=== PATIENT | male | born 1950 | race Caucasian/White ===

== ENCOUNTER 2018-03-25 22:22 | Inpatient (IN) | payer BC ==
[2018-03-25] MEDS ORDERED: ONDANSETRON 4 MG INJ IV (23:30)
[2018-03-25] MEDS ORDERED: NACL 0.9% 3 ML SYG IV (23:30)
[2018-03-25] MEDS: DEXTROSE 5%-0.45% NACL 1,000 ML IV (23:48)
[2018-03-25] MEDS: DILTIAZEM 25 MG INJ IV (23:48)
[2018-03-25] MEDS: FAMOTIDINE 20 MG INJ IV (23:57)
[2018-03-26 00:56] LABS: ADD MAN DIFF? NO
[2018-03-26 00:59] LABS: BASOPHILS % 0.2 % (0.0-2.0); EOSINOPHILS % 0.1 % (0.0-7.0); HEMATOCRIT 25.8 % (42.0-52.0); HEMOGLOBIN 7.9 g/dl (14.0-18.0); LYMPHOCYTES # 0.8 10^3/ul (0.8-2.9); LYMPHOCYTES % 5.1 % (15.0-51.0); MEAN CORPUSCULAR HEMOGLOBIN 26.7 pg (29.0-33.0); MEAN CORPUSCULAR HGB CONC 30.6 g/dl (32.0-37.0); MEAN CORPUSCULAR VOLUME 87.2 fl (82.0-101.0); MEAN PLATELET VOLUME 9.3 fl (7.4-10.4); MONOCYTES % 6.6 % (0.0-11.0); NEUTROPHIL # 13.4 10^3/ul (1.6-7.5); NEUTROPHILS % 86.7 % (39.0-77.0); PLATELET COUNT 266 10^3/UL (140-415); RED BLOOD COUNT 2.96 10^6/ul (4.70-6.10); RED CELL DISTRIBUTION WIDTH 19.5 % (11.5-14.5)
[2018-03-26 00:59] LABS: WHITE BLOOD COUNT 15.5 10^3/ul (4.8-10.8)
[2018-03-26 01:18] LABS: IRON 24 ug/dl (35-150)
[2018-03-26 01:27] LABS: % IRON SATURATION 11 % SAT (22-52); TOTAL IRON BINDING CAPACITY 214 ug/dl (241-421)
[2018-03-26 01:43] LABS: ALANINE AMINOTRANSFERASE 34 IU/L (13-69); ALBUMIN 3.2 g/dl (3.3-4.9); ALBUMIN/GLOBULIN RATIO 0.86; ALKALINE PHOSPHATASE 168 IU/L (42-121); ANION GAP 14 (5-13); ASPARTATE AMINO TRANSFERASE 64 IU/L (15-46); BLOOD UREA NITROGEN 48 mg/dl (7-20); CARBON DIOXIDE 24 mmol/L (21-31); CHLORIDE 106 mmol/L (97-110); CREATINE KINASE 80 IU/L (23-200); CREATININE 4.32 mg/dl (0.61-1.24); Estimated GFR 14 mL/min (>60); GLUCOSE 108 mg/dl (70-220); MAGNESIUM 2.6 mg/dl (1.7-2.5); POTASSIUM 4.5 mmol/L (3.5-5.1); SODIUM 144 mmol/L (135-144); TOTAL PROTEIN 6.9 g/dl (6.1-8.1)
[2018-03-26 01:55] LABS: CK INDEX 9.4; TROPONIN-I 0.024 ng/ml (0.000-0.120)
[2018-03-26 02:01] LABS: CK-MB 7.54 ng/ml (0.0-2.4)
[2018-03-26 02:30] LABS: HEMOGLOBIN A1C 5.4 % (0-5.9)
[2018-03-26 07:56] LABS: CREATINE KINASE 92 IU/L (23-200)
[2018-03-26 08:05] LABS: CK INDEX 8.3; TROPONIN-I 0.023 ng/ml (0.000-0.120)
[2018-03-26 08:07] LABS: CK-MB 7.63 ng/ml (0.0-2.4)
[2018-03-26] MEDS: FAMOTIDINE 20 MG INJ IV (08:34)
[2018-03-26] MEDS ORDERED: ALBUTEROL/IPRATROPIUM (NEB) 3 ML AMP HHN (09:30)
[2018-03-26 09:49] LABS: OCCULT BLOOD STOOL POSITIVE (NEGATIVE)
[2018-03-26] MEDS: LORAZEPAM 2 MG INJ IV (09:49)
[2018-03-26] MEDS: PANTOPRAZOLE 40 MG INJ IV ×2 (09:49→17:42)
[2018-03-26] MEDS: METOPROLOL 25 MG TAB PO ×2 (09:50→21:00)
[2018-03-26] MEDS: ASPIRIN (EC) 81 MG TAB PO (09:50)
[2018-03-26] MEDS: NIFEdipine (XL) 60 MG TAB PO (09:50)
[2018-03-26] MEDS: LOSARTAN 50 MG TAB NGT (10:35)
[2018-03-26] MEDS: METHYLPREDNISOLONE 125 MG INJ IV (10:35)
[2018-03-26 10:38] LABS: AADO2 Arterial 239.4 mmHg (7.0-24.0); Allen Test ACCEPTAB; Arterial Base Excess -3.1 mmol/L (-3.0-3); Arterial Blood Gas Oxygen Sat 89.8 mmHG (95.0-98.0); Arterial COHb 0.9 % (0.0-3.0); Arterial Fraction of Oxyhgb 88.9 % (93.0-99.0); Arterial HCO3 21.9 mmol/L (22.0-26.0); Arterial MetHb 0.1 % (0.0-1.5); Arterial pCO2 39.1 mmhg (35-45); MODE MASK - SIMPLE; Site Right Radial
[2018-03-26] MEDS: CEFEPIME 1GM/50 ML (PMX) 50 ML IVPB (11:07)
[2018-03-26] MEDS: DILTIAZEM-D5W 125MG/125ML DRIP 125 ML IV (12:28)
[2018-03-26 12:52] LABS: AADO2 Arterial 606.9 mmHg (7.0-24.0); Allen Test ACCEPTAB; Arterial Base Excess -3.3 mmol/L (-3.0-3); Arterial Fraction of Oxyhgb 89.1 % (93.0-99.0); Arterial MetHb 0 % (0.0-1.5); Arterial pCO2 40.7 mmhg (35-45); MODE MASK - NRB; Site Right Radial
[2018-03-26] MEDS: ISOSORBIDE DINITRATE 20 MG TAB NGT ×2 (13:00→21:00)
[2018-03-26] MEDS: ALBUTEROL/IPRATROPIUM (NEB) 3 ML AMP HHN ×3 (13:14→21:34)
[2018-03-26] MEDS: DIGOXIN 500 MCG INJ IV (15:42)
[2018-03-26 17:27] LABS: HAAIG REFLEX REFLEX FILED
[2018-03-26] MEDS: LACTULOSE 30ML CUP NGT (17:42)
[2018-03-26] MEDS: SUCRALFATE (100 MG/ML) 10ML CUP NGT ×2 (17:45→20:56)
[2018-03-26 18:36] LABS: HEPATITIS B SURFACE ANTIGEN NEGATIVE (NEGATIVE)
[2018-03-26 18:53] LABS: HEPATITIS B CORE ANTIBODY NEGATIVE (NEGATIVE); HEPATITIS C VIRAL ANTIBODY NEGATIVE (NEGATIVE)
[2018-03-27] MEDS: HEPARIN 1000 UNITS/ML 10 ML INJ CATHETER ×2 (02:50→13:04)
[2018-03-27] MEDS: PANTOPRAZOLE 40 MG INJ IV ×2 (05:31→17:58)
[2018-03-27] MEDS: LACTULOSE 30ML CUP NGT ×4 (05:31→17:58)
[2018-03-27 06:33] LABS: ADD MAN DIFF? NO
[2018-03-27 06:35] LABS: WHITE BLOOD COUNT 19.2 10^3/ul (4.8-10.8)
[2018-03-27 06:35] LABS: BASOPHILS % 0.1 % (0.0-2.0); HEMATOCRIT 27.1 % (42.0-52.0); HEMOGLOBIN 8.1 g/dl (14.0-18.0); LYMPHOCYTES # 0.8 10^3/ul (0.8-2.9); MEAN CORPUSCULAR HEMOGLOBIN 26.2 pg (29.0-33.0); MEAN CORPUSCULAR HGB CONC 29.9 g/dl (32.0-37.0); MEAN CORPUSCULAR VOLUME 87.7 fl (82.0-101.0); MEAN PLATELET VOLUME 9.7 fl (7.4-10.4); MONOCYTE # 1.1 10^3/ul (0.3-0.9); MONOCYTES % 5.8 % (0.0-11.0); NEUTROPHIL # 17.2 10^3/ul (1.6-7.5); NEUTROPHILS % 89.4 % (39.0-77.0); PLATELET COUNT 352 10^3/UL (140-415); RED BLOOD COUNT 3.09 10^6/ul (4.70-6.10); RED CELL DISTRIBUTION WIDTH 19.5 % (11.5-14.5)
[2018-03-27] MEDS: DILTIAZEM-D5W 125MG/125ML DRIP 125 ML IV (06:39)
[2018-03-27 06:50] LABS: AMMONIA 11 umol/l (9-30)
[2018-03-27 07:23] LABS: CHOLESTEROL 114 mg/dl (100-200)
[2018-03-27 07:23] LABS: CHOL/HDL RATIO 4.5 RATIO; HDL CHOLESTEROL 25 mg/dl (31-75); LDL CHOLESTEROL,CALCULATED 72 mg/dl; TRIGLYCERIDES 87 mg/dl (0-149)
[2018-03-27 07:55] LABS: ANION GAP 12 (5-13); BLOOD UREA NITROGEN 29 mg/dl (7-20); CALCIUM 8.3 mg/dl (8.4-10.2); CARBON DIOXIDE 25 mmol/L (21-31); CHLORIDE 102 mmol/L (97-110); CREATININE 2.83 mg/dl (0.61-1.24); Estimated GFR 22 mL/min (>60); GLUCOSE 124 mg/dl (70-220); MAGNESIUM 2.2 mg/dl (1.7-2.5); POTASSIUM 4.6 mmol/L (3.5-5.1); SODIUM 139 mmol/L (135-144)
[2018-03-27] MEDS: CEFEPIME 1GM/50 ML (PMX) 50 ML IVPB (08:48)
[2018-03-27] MEDS: METOPROLOL 25 MG TAB PO ×2 (08:53→21:00)
[2018-03-27] MEDS: SUCRALFATE (100 MG/ML) 10ML CUP NGT ×4 (08:53→21:00)
[2018-03-27] MEDS: LOSARTAN 50 MG TAB NGT (08:54)
[2018-03-27] MEDS: ALBUTEROL/IPRATROPIUM (NEB) 3 ML AMP HHN ×5 (09:00→21:23)
[2018-03-27] MEDS ORDERED: VANCOMYCIN IV PER PHARMACY XX (09:00)
[2018-03-27] MEDS: ISOSORBIDE DINITRATE 20 MG TAB NGT ×3 (09:03→21:00)
[2018-03-27 09:22] LABS: Allen Test ACCEPTAB; Arterial Base Excess 0.9 mmol/L (-3.0-3); Arterial COHb 0.5 % (0.0-3.0); Arterial Fraction of Oxyhgb 91.5 % (93.0-99.0); Arterial HCO3 24.3 mmol/L (22.0-26.0); Arterial MetHb 0 % (0.0-1.5); Arterial pCO2 34.2 mmhg (35-45); MODE MASK - SIMPLE; Site Left Radial
[2018-03-27] MEDS: LEVOFLOXACIN 250MG/D5W (PMX) 50 ML IVPB (13:07)
[2018-03-27] MEDS: VANCOMYCIN 1.5 GM in SOD CHLORIDE 0.9% 250 ML IVPB (14:27)
[2018-03-27] MEDS: HALOPERIDOL 5 MG INJ IM (21:30)
[2018-03-28] MEDS: LACTULOSE 30ML CUP NGT ×4 (01:37→18:00)
[2018-03-28] MEDS: PANTOPRAZOLE 40 MG INJ IV ×2 (04:51→18:43)
[2018-03-28 05:36] LABS: AADO2 Arterial 108.2 mmHg (7.0-24.0); Allen Test ACCEPTAB; Arterial Base Excess 6.7 mmol/L (-3.0-3); Arterial Blood Gas Oxygen Sat 90.4 mmHG (95.0-98.0); Arterial Fraction of Oxyhgb 89.4 % (93.0-99.0); Arterial HCO3 30.3 mmol/L (22.0-26.0); Arterial MetHb 0.1 % (0.0-1.5); Arterial pCO2 39.3 mmhg (35-45); MODE NASAL CANNULA; Site Right Radial
[2018-03-28 06:00] LABS: ADD MAN DIFF? NO
[2018-03-28 06:06] LABS: WHITE BLOOD COUNT 12.6 10^3/ul (4.8-10.8)
[2018-03-28 06:06] LABS: BASOPHILS % 0.1 % (0.0-2.0); EOSINOPHILS % 0.1 % (0.0-7.0); HEMATOCRIT 23.4 % (42.0-52.0); LYMPHOCYTES # 0.8 10^3/ul (0.8-2.9); LYMPHOCYTES % 6.5 % (15.0-51.0); MEAN CORPUSCULAR HEMOGLOBIN 26.1 pg (29.0-33.0); MEAN CORPUSCULAR HGB CONC 29.9 g/dl (32.0-37.0); MEAN CORPUSCULAR VOLUME 87.3 fl (82.0-101.0); MEAN PLATELET VOLUME 9.5 fl (7.4-10.4); MONOCYTE # 1.2 10^3/ul (0.3-0.9); MONOCYTES % 9.1 % (0.0-11.0); NEUTROPHIL # 10.4 10^3/ul (1.6-7.5); NEUTROPHILS % 82.3 % (39.0-77.0); PLATELET COUNT 325 10^3/UL (140-415); RED BLOOD COUNT 2.68 10^6/ul (4.70-6.10); RED CELL DISTRIBUTION WIDTH 19.4 % (11.5-14.5)
[2018-03-28 07:13] LABS: ANION GAP 11 (5-13); BLOOD UREA NITROGEN 23 mg/dl (7-20); CALCIUM 8.2 mg/dl (8.4-10.2); CARBON DIOXIDE 28 mmol/L (21-31); CHLORIDE 99 mmol/L (97-110); CREATININE 2.59 mg/dl (0.61-1.24); Estimated GFR 25 mL/min (>60); GLUCOSE 186 mg/dl (70-220); MAGNESIUM 2.2 mg/dl (1.7-2.5); PHOSPHORUS 2.2 mg/dl (2.5-4.9); POTASSIUM 3.9 mmol/L (3.5-5.1); SODIUM 138 mmol/L (135-144)
[2018-03-28] MEDS: ALBUTEROL/IPRATROPIUM (NEB) 3 ML AMP HHN ×4 (08:12→20:47)
[2018-03-28] MEDS: SUCRALFATE (100 MG/ML) 10ML CUP NGT ×4 (09:13→20:35)
[2018-03-28] MEDS: ISOSORBIDE DINITRATE 20 MG TAB NGT ×3 (09:13→20:35)
[2018-03-28] MEDS: LOSARTAN 50 MG TAB NGT (09:14)
[2018-03-28] MEDS: METOPROLOL 25 MG TAB PO ×2 (09:14→18:00)
[2018-03-28] MEDS: CEFEPIME 1GM/50 ML (PMX) 50 ML IVPB (09:14)
[2018-03-28] MEDS: DILTIAZEM-D5W 125MG/125ML DRIP 125 ML IV (09:34)
[2018-03-28] MEDS: LORAZEPAM 4 MG/ML VIAL IV ×2 (12:29→18:43)
[2018-03-28] MEDS: EPOETIN 10000 UNITS/1 ML INJ (ESRD) SC (12:30)
[2018-03-28] MEDS: SOD FERRIC GLUC COMPLX 125 MG in SOD CHLORIDE 0.9% 100 ML IVPB (13:55)
[2018-03-29] MEDS: METOPROLOL 25 MG TAB PO ×3 (00:09→11:03)
[2018-03-29] MEDS: LACTULOSE 30ML CUP NGT ×3 (00:10→11:03)
[2018-03-29] MEDS ORDERED: VITAMIN A & D 5 GM OINT PACKET TOP (00:32)
[2018-03-29] MEDS: PANTOPRAZOLE 40 MG INJ IV ×2 (05:17→17:47)
[2018-03-29] MEDS: hydrALAzine 20 MG INJ IV ×3 (05:45→23:16)
[2018-03-29 06:10] LABS: ADD MAN DIFF? NO
[2018-03-29 06:22] LABS: BASOPHILS % 0.3 % (0.0-2.0); EOSINOPHILS # 0.1 10^3/ul (0.0-0.5); EOSINOPHILS % 1.2 % (0.0-7.0); HEMOGLOBIN 7.5 g/dl (14.0-18.0); LYMPHOCYTES % 8.8 % (15.0-51.0); MEAN CORPUSCULAR HEMOGLOBIN 26.9 pg (29.0-33.0); MEAN CORPUSCULAR VOLUME 89.6 fl (82.0-101.0); MEAN PLATELET VOLUME 9.8 fl (7.4-10.4); MONOCYTES % 9.1 % (0.0-11.0); NEUTROPHIL # 8.5 10^3/ul (1.6-7.5); PLATELET COUNT 386 10^3/UL (140-415); RED BLOOD COUNT 2.79 10^6/ul (4.70-6.10); RED CELL DISTRIBUTION WIDTH 19.4 % (11.5-14.5)
[2018-03-29 06:22] LABS: WHITE BLOOD COUNT 10.8 10^3/ul (4.8-10.8)
[2018-03-29 06:38] LABS: VANCOMYCIN,RANDOM 20.1 ug/ml
[2018-03-29 06:43] LABS: ANION GAP 10 (5-13); BLOOD UREA NITROGEN 35 mg/dl (7-20); CALCIUM 8.5 mg/dl (8.4-10.2); CARBON DIOXIDE 29 mmol/L (21-31); CHLORIDE 102 mmol/L (97-110); Estimated GFR 14 mL/min (>60); GLUCOSE 91 mg/dl (70-220); POTASSIUM 4.3 mmol/L (3.5-5.1); SODIUM 141 mmol/L (135-144)
[2018-03-29] MEDS: LOSARTAN 50 MG TAB NGT (08:59)
[2018-03-29] MEDS: ISOSORBIDE DINITRATE 20 MG TAB NGT ×3 (08:59→21:00)
[2018-03-29] MEDS: LEVOFLOXACIN 250MG/D5W (PMX) 50 ML IVPB (09:10)
[2018-03-29] MEDS: CEFEPIME 1GM/50 ML (PMX) 50 ML IVPB (09:11)
[2018-03-29] MEDS: SUCRALFATE (100 MG/ML) 10ML CUP NGT ×4 (09:11→21:00)
[2018-03-29] MEDS: ALBUTEROL/IPRATROPIUM (NEB) 3 ML AMP HHN ×4 (09:55→20:42)
[2018-03-29] MEDS: SOD FERRIC GLUC COMPLX 125 MG in SOD CHLORIDE 0.9% 100 ML IVPB (12:32)
[2018-03-29] MEDS: HEPARIN 1000 UNITS/ML 10 ML INJ CATHETER (15:13)
[2018-03-29] MEDS: LORAZEPAM 4 MG/ML VIAL IV (15:20)
[2018-03-29] MEDS: EPOETIN 10000 UNITS/1 ML INJ (ESRD) SC (15:21)
[2018-03-29] MEDS ORDERED: METOPROLOL 5 MG INJ (15:38)
[2018-03-29] MEDS: METOPROLOL 5 MG INJ IV ×2 (15:41→21:29)
[2018-03-29] MEDS: LACTULOSE ENEMA 1,000 ML BTL PR (23:16)
[2018-03-30] MEDS: LORAZEPAM 4 MG/ML VIAL IV ×3 (01:32→23:34)
[2018-03-30] MEDS: METOPROLOL 5 MG INJ IV ×5 (02:14→23:34)
[2018-03-30] MEDS: hydrALAzine 20 MG INJ IV ×2 (04:54→22:37)
[2018-03-30] MEDS: LACTULOSE ENEMA 1,000 ML BTL PR ×3 (06:00→22:37)
[2018-03-30] MEDS: PANTOPRAZOLE 40 MG INJ IV ×2 (06:28→18:02)
[2018-03-30] MEDS: LOSARTAN 50 MG TAB NGT (09:00)
[2018-03-30] MEDS: SUCRALFATE (100 MG/ML) 10ML CUP NGT ×4 (09:00→21:00)
[2018-03-30] MEDS: ISOSORBIDE DINITRATE 20 MG TAB NGT ×3 (09:00→21:00)
[2018-03-30 09:04] LABS: ADD MAN DIFF? NO
[2018-03-30] MEDS: ALBUTEROL/IPRATROPIUM (NEB) 3 ML AMP HHN ×4 (09:06→20:09)
[2018-03-30 09:10] LABS: BASOPHIL # 0.1 10^3/ul (0.0-0.1); BASOPHILS % 0.5 % (0.0-2.0); EOSINOPHILS # 0.1 10^3/ul (0.0-0.5); EOSINOPHILS % 1.1 % (0.0-7.0); HEMOGLOBIN 8.5 g/dl (14.0-18.0); LYMPHOCYTES % 9.1 % (15.0-51.0); MEAN CORPUSCULAR HEMOGLOBIN 26.2 pg (29.0-33.0); MEAN CORPUSCULAR HGB CONC 29.3 g/dl (32.0-37.0); MEAN CORPUSCULAR VOLUME 89.2 fl (82.0-101.0); MONOCYTE # 0.9 10^3/ul (0.3-0.9); MONOCYTES % 8.2 % (0.0-11.0); NEUTROPHIL # 8.6 10^3/ul (1.6-7.5); NEUTROPHILS % 76.2 % (39.0-77.0); PLATELET COUNT 348 10^3/UL (140-415); RED BLOOD COUNT 3.25 10^6/ul (4.70-6.10); RED CELL DISTRIBUTION WIDTH 19.4 % (11.5-14.5)
[2018-03-30 09:10] LABS: WHITE BLOOD COUNT 11.3 10^3/ul (4.8-10.8)
[2018-03-30 09:33] LABS: ALANINE AMINOTRANSFERASE 31 IU/L (13-69); ALBUMIN/GLOBULIN RATIO 0.75; ALKALINE PHOSPHATASE 141 IU/L (42-121); ANION GAP 11 (5-13); ASPARTATE AMINO TRANSFERASE 41 IU/L (15-46); BILIRUBIN,INDIRECT 0.2 mg/dl (0-1.1); BILIRUBIN,TOTAL 0.2 mg/dl (0.2-1.3); BLOOD UREA NITROGEN 21 mg/dl (7-20); CALCIUM 8.5 mg/dl (8.4-10.2); CARBON DIOXIDE 27 mmol/L (21-31); CHLORIDE 103 mmol/L (97-110); CREATININE 3.38 mg/dl (0.61-1.24); Estimated GFR 18 mL/min (>60); GLUCOSE 74 mg/dl (70-220); POTASSIUM 3.9 mmol/L (3.5-5.1); SODIUM 141 mmol/L (135-144)
[2018-03-30] MEDS: CEFEPIME 1GM/50 ML (PMX) 50 ML IVPB (09:49)
[2018-03-30] MEDS: SOD FERRIC GLUC COMPLX 125 MG in SOD CHLORIDE 0.9% 100 ML IVPB (13:53)
[2018-03-31] MEDS: hydrALAzine 20 MG INJ IV (04:16)
[2018-03-31] MEDS: METOPROLOL 5 MG INJ IV ×2 (05:19→12:00)
[2018-03-31] MEDS: PANTOPRAZOLE 40 MG INJ IV ×2 (05:19→18:01)
[2018-03-31] MEDS: LACTULOSE ENEMA 1,000 ML BTL PR (05:20)
[2018-03-31 05:56] LABS: ADD MAN DIFF? NO
[2018-03-31 05:58] LABS: WHITE BLOOD COUNT 13.5 10^3/ul (4.8-10.8)
[2018-03-31 05:58] LABS: BASOPHIL # 0.1 10^3/ul (0.0-0.1); BASOPHILS % 0.8 % (0.0-2.0); EOSINOPHILS # 0.1 10^3/ul (0.0-0.5); EOSINOPHILS % 0.9 % (0.0-7.0); HEMOGLOBIN 8.6 g/dl (14.0-18.0); LYMPHOCYTES # 1.2 10^3/ul (0.8-2.9); MEAN CORPUSCULAR HEMOGLOBIN 26.6 pg (29.0-33.0); MEAN CORPUSCULAR HGB CONC 29.7 g/dl (32.0-37.0); MEAN CORPUSCULAR VOLUME 89.8 fl (82.0-101.0); MEAN PLATELET VOLUME 10.2 fl (7.4-10.4); MONOCYTES % 7.6 % (0.0-11.0); NEUTROPHIL # 10.4 10^3/ul (1.6-7.5); NEUTROPHILS % 77.2 % (39.0-77.0); NUCLEATED RED BLOOD CELLS% 0.3 /100WBC (0.0-0.0); PLATELET COUNT 421 10^3/UL (140-415); RED BLOOD COUNT 3.23 10^6/ul (4.70-6.10); RED CELL DISTRIBUTION WIDTH 19.3 % (11.5-14.5)
[2018-03-31 06:40] LABS: VANCOMYCIN,RANDOM 14.9 ug/ml
[2018-03-31 06:47] LABS: ANION GAP 16 (5-13); BLOOD UREA NITROGEN 32 mg/dl (7-20); CALCIUM 8.7 mg/dl (8.4-10.2); CARBON DIOXIDE 24 mmol/L (21-31); CHLORIDE 103 mmol/L (97-110); CREATININE 4.85 mg/dl (0.61-1.24); Estimated GFR 12 mL/min (>60); GLUCOSE 71 mg/dl (70-220); MAGNESIUM 2.3 mg/dl (1.7-2.5); PHOSPHORUS 4.2 mg/dl (2.5-4.9); POTASSIUM 4.4 mmol/L (3.5-5.1); SODIUM 143 mmol/L (135-144)
[2018-03-31] MEDS: ALBUTEROL/IPRATROPIUM (NEB) 3 ML AMP HHN ×4 (08:10→21:10)
[2018-03-31] MEDS: LOSARTAN 50 MG TAB NGT (08:19)
[2018-03-31] MEDS: SUCRALFATE (100 MG/ML) 10ML CUP NGT ×4 (08:19→20:42)
[2018-03-31] MEDS: ISOSORBIDE DINITRATE 20 MG TAB NGT ×3 (08:19→20:42)
[2018-03-31] MEDS: HEPARIN 1000 UNITS/ML 10 ML INJ CATHETER (12:26)
[2018-03-31] MEDS: CEFEPIME 1GM/50 ML (PMX) 50 ML IVPB (12:47)
[2018-03-31] MEDS: LEVOFLOXACIN 250MG/D5W (PMX) 50 ML IVPB (12:51)
[2018-03-31] MEDS ORDERED: VANCOMYCIN 1 GM 250 ML IVPB (14:00)
[2018-03-31] MEDS: SOD FERRIC GLUC COMPLX 125 MG in SOD CHLORIDE 0.9% 100 ML IVPB (15:43)
[2018-03-31] MEDS: MANNITOL 25% 50 ML INJ IV* (16:30)
[2018-03-31] MEDS ORDERED: METOPROLOL 5 MG INJ IV (17:30)
[2018-03-31] MEDS: MANNITOL 20% 125 ML IV (17:50)
[2018-03-31] MEDS: LACTULOSE 30ML CUP PO (20:42)
[2018-03-31] MEDS: LORAZEPAM 4 MG/ML VIAL IV (20:43)
[2018-03-31] MEDS: METOPROLOL 25 MG TAB PO (20:43)
[2018-03-31] MEDS: EPOETIN 10000 UNITS/1 ML INJ (ESRD) SC (20:45)
[2018-04-01] MEDS ORDERED: ALTEPLASE (CATHFLO) 2 MG INJ CATHETER (03:00)
[2018-04-01] MEDS: hydrALAzine 20 MG INJ IV ×2 (03:02→05:06)
[2018-04-01] MEDS: ALTEPLASE (CATHFLO) 2 MG INJ CATHETER (03:39)
[2018-04-01] MEDS: LORAZEPAM 4 MG/ML VIAL IV (04:26)
[2018-04-01] MEDS: PANTOPRAZOLE 40 MG INJ IV ×2 (05:05→17:28)
[2018-04-01] MEDS: ALBUTEROL/IPRATROPIUM (NEB) 3 ML AMP HHN ×4 (08:24→20:21)
[2018-04-01] MEDS: SUCRALFATE (100 MG/ML) 10ML CUP NGT ×4 (08:25→21:21)
[2018-04-01] MEDS: ISOSORBIDE DINITRATE 20 MG TAB NGT ×3 (08:25→21:21)
[2018-04-01] MEDS: LOSARTAN 50 MG TAB NGT (08:25)
[2018-04-01] MEDS: LACTULOSE 30ML CUP PO ×3 (08:25→21:21)
[2018-04-01] MEDS: METOPROLOL 25 MG TAB PO ×2 (08:26→21:22)
[2018-04-01] MEDS: NIFEdipine (XL) 30 MG TAB PO ×2 (08:37→21:22)
[2018-04-01] MEDS: SOD FERRIC GLUC COMPLX 125 MG in SOD CHLORIDE 0.9% 100 ML IVPB (13:36)
[2018-04-02] MEDS: LORAZEPAM 4 MG/ML VIAL IV (01:15)
[2018-04-02] MEDS: PANTOPRAZOLE 40 MG INJ IV ×2 (06:41→17:15)
[2018-04-02] MEDS: hydrALAzine 20 MG INJ IV (06:41)
[2018-04-02] MEDS: ALBUTEROL/IPRATROPIUM (NEB) 3 ML AMP HHN ×4 (08:00→23:05)
[2018-04-02] MEDS: LACTULOSE 30ML CUP PO ×3 (08:11→20:34)
[2018-04-02] MEDS: METOPROLOL 25 MG TAB PO ×2 (08:11→20:36)
[2018-04-02] MEDS: SUCRALFATE (100 MG/ML) 10ML CUP NGT ×4 (08:11→20:35)
[2018-04-02] MEDS: LEVOFLOXACIN 250MG/D5W (PMX) 50 ML IVPB (08:14)
[2018-04-02] MEDS: LOSARTAN 50 MG TAB NGT (08:14)
[2018-04-02] MEDS: ISOSORBIDE DINITRATE 20 MG TAB NGT ×3 (08:15→21:00)
[2018-04-02] MEDS: NIFEdipine (XL) 30 MG TAB PO ×2 (08:15→20:35)
[2018-04-02] MEDS: RIFAXIMIN 550 MG TAB PO ×2 (12:07→20:34)
[2018-04-02] MEDS: HEPARIN 1000 UNITS/ML 10 ML INJ CATHETER (16:45)
[2018-04-03] MEDS: PANTOPRAZOLE 40 MG INJ IV ×2 (06:03→17:25)
[2018-04-03 06:05] LABS: ADD MAN DIFF? NO
[2018-04-03 06:12] LABS: BASOPHIL # 0.1 10^3/ul (0.0-0.1); BASOPHILS % 0.6 % (0.0-2.0); EOSINOPHILS # 0.2 10^3/ul (0.0-0.5); EOSINOPHILS % 1.4 % (0.0-7.0); HEMOGLOBIN 9.2 g/dl (14.0-18.0); LYMPHOCYTES # 1.4 10^3/ul (0.8-2.9); LYMPHOCYTES % 11.1 % (15.0-51.0); MEAN CORPUSCULAR HEMOGLOBIN 26.7 pg (29.0-33.0); MEAN CORPUSCULAR HGB CONC 29.7 g/dl (32.0-37.0); MEAN CORPUSCULAR VOLUME 89.9 fl (82.0-101.0); MEAN PLATELET VOLUME 9.2 fl (7.4-10.4); NEUTROPHIL # 9.4 10^3/ul (1.6-7.5); NEUTROPHILS % 77.3 % (39.0-77.0); NUCLEATED RED BLOOD CELLS% 0.2 /100WBC (0.0-0.0); PLATELET COUNT 406 10^3/UL (140-415); RED BLOOD COUNT 3.45 10^6/ul (4.70-6.10); RED CELL DISTRIBUTION WIDTH 20.9 % (11.5-14.5)
[2018-04-03 06:12] LABS: WHITE BLOOD COUNT 12.1 10^3/ul (4.8-10.8)
[2018-04-03] MEDS: ALBUTEROL/IPRATROPIUM (NEB) 3 ML AMP HHN ×4 (08:00→20:15)
[2018-04-03] MEDS: LACTULOSE 30ML CUP PO ×3 (08:28→20:12)
[2018-04-03] MEDS: SUCRALFATE (100 MG/ML) 10ML CUP NGT ×4 (08:29→20:11)
[2018-04-03] MEDS: RIFAXIMIN 550 MG TAB PO ×2 (08:29→20:12)
[2018-04-03] MEDS: NIFEdipine (XL) 30 MG TAB PO ×2 (08:30→20:19)
[2018-04-03] MEDS: LOSARTAN 50 MG TAB NGT (08:31)
[2018-04-03] MEDS: METOPROLOL 25 MG TAB PO ×2 (08:32→20:12)
[2018-04-03] MEDS: LORAZEPAM 4 MG/ML VIAL IV (08:56)
[2018-04-03] MEDS: ISOSORBIDE DINITRATE 20 MG TAB NGT ×2 (09:56→12:41)
[2018-04-03] MEDS: NIFEdipine 10 MG CAP PO (22:13)
[2018-04-04] MEDS: PANTOPRAZOLE 40 MG INJ IV ×2 (05:11→17:46)
[2018-04-04] MEDS: NIFEdipine 10 MG CAP PO ×3 (05:11→21:16)
[2018-04-04] MEDS: ALBUTEROL/IPRATROPIUM (NEB) 3 ML AMP HHN ×4 (08:09→20:29)
[2018-04-04] MEDS: LEVOFLOXACIN 250MG/D5W (PMX) 50 ML IVPB (09:33)
[2018-04-04] MEDS: LACTULOSE 30ML CUP PO ×3 (09:33→21:15)
[2018-04-04] MEDS: SUCRALFATE (100 MG/ML) 10ML CUP NGT ×4 (09:33→21:15)
[2018-04-04] MEDS: RIFAXIMIN 550 MG TAB PO ×2 (09:35→21:17)
[2018-04-04] MEDS: METOPROLOL 25 MG TAB PO ×2 (09:36→21:15)
[2018-04-04] MEDS: LORAZEPAM 4 MG/ML VIAL IV (15:10)
[2018-04-05] MEDS: NIFEdipine 10 MG CAP PO ×3 (05:26→22:39)
[2018-04-05] MEDS: PANTOPRAZOLE 40 MG INJ IV ×2 (05:26→18:00)
[2018-04-05] MEDS: ALBUTEROL/IPRATROPIUM (NEB) 3 ML AMP HHN ×4 (08:05→21:22)
[2018-04-05] MEDS: METOPROLOL 25 MG TAB PO ×2 (09:16→22:38)
[2018-04-05] MEDS: LACTULOSE 30ML CUP PO ×3 (09:16→21:00)
[2018-04-05] MEDS: RIFAXIMIN 550 MG TAB PO ×2 (09:16→22:38)
[2018-04-05] MEDS: SUCRALFATE (100 MG/ML) 10ML CUP NGT ×4 (09:16→21:00)
[2018-04-05] MEDS: LORAZEPAM 4 MG/ML VIAL IV (17:35)
[2018-04-05] MEDS: HEPARIN 1000 UNITS/ML 10 ML INJ CATHETER (19:11)
[2018-04-06] MEDS: NIFEdipine 10 MG CAP PO ×3 (06:40→21:58)
[2018-04-06] MEDS: PANTOPRAZOLE 40 MG INJ IV ×2 (06:40→18:00)
[2018-04-06] MEDS: ALBUTEROL/IPRATROPIUM (NEB) 3 ML AMP HHN ×4 (08:19→20:39)
[2018-04-06] MEDS: METOPROLOL 25 MG TAB PO ×3 (08:53→21:59)
[2018-04-06] MEDS: SUCRALFATE (100 MG/ML) 10ML CUP NGT ×4 (08:53→21:59)
[2018-04-06] MEDS: RIFAXIMIN 550 MG TAB PO ×2 (08:53→21:59)
[2018-04-06] MEDS: LACTULOSE 30ML CUP PO (08:53)
[2018-04-06 11:20] LABS: ADD MAN DIFF? NO
[2018-04-06 11:25] LABS: BASOPHIL # 0.1 10^3/ul (0.0-0.1); BASOPHILS % 0.3 % (0.0-2.0); EOSINOPHILS # 0.1 10^3/ul (0.0-0.5); EOSINOPHILS % 0.5 % (0.0-7.0); HEMATOCRIT 32.7 % (42.0-52.0); HEMOGLOBIN 9.6 g/dl (14.0-18.0); MEAN CORPUSCULAR HEMOGLOBIN 26.4 pg (29.0-33.0); MEAN CORPUSCULAR HGB CONC 29.4 g/dl (32.0-37.0); MEAN CORPUSCULAR VOLUME 90.1 fl (82.0-101.0); MEAN PLATELET VOLUME 9.2 fl (7.4-10.4); MONOCYTE # 1.1 10^3/ul (0.3-0.9); MONOCYTES % 7.6 % (0.0-11.0); NEUTROPHIL # 12.4 10^3/ul (1.6-7.5); NEUTROPHILS % 84.1 % (39.0-77.0); PLATELET COUNT 327 10^3/UL (140-415); RED BLOOD COUNT 3.63 10^6/ul (4.70-6.10)
[2018-04-06 11:25] LABS: WHITE BLOOD COUNT 14.8 10^3/ul (4.8-10.8)
[2018-04-06] MEDS: LORAZEPAM 4 MG/ML VIAL IV (22:14)
[2018-04-07] MEDS: NIFEdipine 10 MG CAP PO ×3 (06:23→22:28)
[2018-04-07] MEDS: PANTOPRAZOLE 40 MG INJ IV (06:32)
[2018-04-07] MEDS: ALBUTEROL/IPRATROPIUM (NEB) 3 ML AMP HHN ×4 (08:08→20:30)
[2018-04-07] MEDS: METOPROLOL 25 MG TAB PO ×2 (09:00→22:27)
[2018-04-07] MEDS: RIFAXIMIN 550 MG TAB PO ×2 (11:22→22:28)
[2018-04-07] MEDS: SUCRALFATE (100 MG/ML) 10ML CUP NGT ×4 (11:22→22:29)
[2018-04-07 18:16] LABS: ADD MAN DIFF? NO
[2018-04-07 18:21] LABS: BASOPHILS % 0.3 % (0.0-2.0); EOSINOPHILS # 0.1 10^3/ul (0.0-0.5); HEMATOCRIT 28.9 % (42.0-52.0); HEMOGLOBIN 8.6 g/dl (14.0-18.0); LYMPHOCYTES # 0.8 10^3/ul (0.8-2.9); LYMPHOCYTES % 7.6 % (15.0-51.0); MEAN CORPUSCULAR HEMOGLOBIN 26.7 pg (29.0-33.0); MEAN CORPUSCULAR HGB CONC 29.8 g/dl (32.0-37.0); MEAN CORPUSCULAR VOLUME 89.8 fl (82.0-101.0); MEAN PLATELET VOLUME 9.2 fl (7.4-10.4); MONOCYTE # 0.7 10^3/ul (0.3-0.9); MONOCYTES % 6.3 % (0.0-11.0); NEUTROPHIL # 8.8 10^3/ul (1.6-7.5); NEUTROPHILS % 84.2 % (39.0-77.0); PLATELET COUNT 275 10^3/UL (140-415); RED BLOOD COUNT 3.22 10^6/ul (4.70-6.10); RED CELL DISTRIBUTION WIDTH 19.8 % (11.5-14.5)
[2018-04-07 18:21] LABS: WHITE BLOOD COUNT 10.5 10^3/ul (4.8-10.8)
[2018-04-07 18:55] LABS: ANION GAP 10 (5-13); BLOOD UREA NITROGEN 27 mg/dl (7-20); CALCIUM 8.7 mg/dl (8.4-10.2); CARBON DIOXIDE 27 mmol/L (21-31); CHLORIDE 103 mmol/L (97-110); CREATININE 6.55 mg/dl (0.61-1.24); Estimated GFR 8 mL/min (>60); GLUCOSE 103 mg/dl (70-220); MAGNESIUM 2.2 mg/dl (1.7-2.5); PHOSPHORUS 4.5 mg/dl (2.5-4.9); POTASSIUM 3.2 mmol/L (3.5-5.1); SODIUM 140 mmol/L (135-144)
[2018-04-07] MEDS: HEPARIN 1000 UNITS/ML 10 ML INJ CATHETER (21:04)
[2018-04-07] MEDS: PANTOPRAZOLE (EC) 40 MG TAB PO (22:28)
[2018-04-08] MEDS: ZOLPIDEM 5 MG TAB PO (01:01)
[2018-04-08] MEDS: NIFEdipine 10 MG CAP PO ×4 (06:00→21:19)
[2018-04-08] MEDS: PANTOPRAZOLE (EC) 40 MG TAB PO ×2 (06:44→17:38)
[2018-04-08] MEDS: ALBUTEROL/IPRATROPIUM (NEB) 3 ML AMP HHN ×4 (08:34→20:29)
[2018-04-08] MEDS: SUCRALFATE (100 MG/ML) 10ML CUP NGT ×4 (09:07→20:36)
[2018-04-08] MEDS: RIFAXIMIN 550 MG TAB PO ×2 (09:07→21:00)
[2018-04-08] MEDS: METOPROLOL 25 MG TAB PO ×2 (09:08→20:37)
[2018-04-08] MEDS ORDERED: OLANZAPINE (ODT) 5 MG TAB ODT (12:30)
[2018-04-08] MEDS: OLANZAPINE (ODT) 5 MG TAB ODT (13:58)
[2018-04-09] MEDS: PANTOPRAZOLE (EC) 40 MG TAB PO ×2 (05:52→17:43)
[2018-04-09] MEDS: NIFEdipine 10 MG CAP PO ×4 (05:52→23:02)
[2018-04-09] MEDS: METOPROLOL 25 MG TAB PO ×2 (08:06→20:49)
[2018-04-09] MEDS: ALBUTEROL/IPRATROPIUM (NEB) 3 ML AMP HHN ×4 (08:36→21:00)
[2018-04-09] MEDS: OLANZAPINE (ODT) 5 MG TAB ODT ×2 (09:19→20:55)
[2018-04-09] MEDS: SUCRALFATE (100 MG/ML) 10ML CUP NGT ×4 (09:19→20:47)
[2018-04-09] MEDS: RIFAXIMIN 550 MG TAB PO ×2 (09:19→20:55)
[2018-04-09] MEDS: clonAZEPAM 0.5 MG TAB PO ×2 (12:44→20:49)
[2018-04-09] MEDS: HEPARIN 1000 UNITS/ML 10 ML INJ CATHETER (15:29)
[2018-04-09] MEDS: EPOETIN 10000 UNITS/1 ML INJ (ESRD) SC (18:59)
[2018-04-09] MEDS ORDERED: ACETAMINOPHEN 325 MG TAB (22:08)
[2018-04-09] MEDS: ACETAMINOPHEN 325 MG TAB PO (22:13)
[2018-04-10] MEDS: NIFEdipine 10 MG CAP PO ×3 (05:09→21:58)
[2018-04-10] MEDS: PANTOPRAZOLE (EC) 40 MG TAB PO ×2 (05:11→17:24)
[2018-04-10] MEDS: ALBUTEROL/IPRATROPIUM (NEB) 3 ML AMP HHN ×4 (08:43→21:09)
[2018-04-10] MEDS: METOPROLOL 25 MG TAB PO ×2 (09:00→20:37)
[2018-04-10] MEDS: BALSAM PERU/CASTOR OIL 60 GM TUBE TOP (09:25)
[2018-04-10] MEDS: RIFAXIMIN 550 MG TAB PO ×2 (09:25→20:36)
[2018-04-10] MEDS: SUCRALFATE (100 MG/ML) 10ML CUP NGT ×4 (09:25→20:36)
[2018-04-10] MEDS: OLANZAPINE (ODT) 5 MG TAB ODT ×2 (09:25→20:36)
[2018-04-10] MEDS: clonAZEPAM 0.5 MG TAB PO ×2 (09:27→20:36)
[2018-04-11] MEDS: PANTOPRAZOLE (EC) 40 MG TAB PO ×2 (05:41→17:48)
[2018-04-11] MEDS: NIFEdipine 10 MG CAP PO ×3 (05:42→22:00)
[2018-04-11] MEDS: clonAZEPAM 0.5 MG TAB PO ×2 (09:00→20:56)
[2018-04-11] MEDS: BALSAM PERU/CASTOR OIL 60 GM TUBE TOP (09:00)
[2018-04-11] MEDS: METOPROLOL 25 MG TAB PO ×2 (09:00→20:57)
[2018-04-11] MEDS: ALBUTEROL/IPRATROPIUM (NEB) 3 ML AMP HHN ×4 (09:00→21:00)
[2018-04-11] MEDS: OLANZAPINE (ODT) 5 MG TAB ODT ×2 (09:00→20:56)
[2018-04-11] MEDS: RIFAXIMIN 550 MG TAB PO ×2 (09:00→21:24)
[2018-04-11] MEDS: SUCRALFATE (100 MG/ML) 10ML CUP NGT ×4 (09:00→20:57)
[2018-04-11] MEDS: SOD CHLORIDE 0.9% 500 ML IV (22:18)
[2018-04-12] MEDS: NIFEdipine 10 MG CAP PO ×3 (06:00→21:47)
[2018-04-12] MEDS: PANTOPRAZOLE (EC) 40 MG TAB PO ×2 (06:44→16:52)
[2018-04-12 08:25] LABS: ABNORMAL IP MESSAGE 1; HEMATOCRIT 36.4 % (42.0-52.0); HEMOGLOBIN 10.9 g/dl (14.0-18.0); MEAN CORPUSCULAR HEMOGLOBIN 25.8 pg (29.0-33.0); MEAN CORPUSCULAR HGB CONC 29.9 g/dl (32.0-37.0); MEAN CORPUSCULAR VOLUME 86.1 fl (82.0-101.0); MEAN PLATELET VOLUME 9.4 fl (7.4-10.4); PLATELET COUNT 441 10^3/UL (140-415); POSITIVE DIFF @See below; RED BLOOD COUNT 4.23 10^6/ul (4.70-6.10); RED CELL DISTRIBUTION WIDTH 18.1 % (11.5-14.5)
[2018-04-12 08:25] LABS: WHITE BLOOD COUNT 26.3 10^3/ul (4.8-10.8)
[2018-04-12 08:30] LABS: ADD MAN DIFF? YES
[2018-04-12] MEDS: RIFAXIMIN 550 MG TAB PO ×2 (08:36→21:46)
[2018-04-12] MEDS: SUCRALFATE (100 MG/ML) 10ML CUP NGT ×4 (08:36→21:00)
[2018-04-12] MEDS: OLANZAPINE (ODT) 5 MG TAB ODT ×2 (08:36→21:39)
[2018-04-12] MEDS: clonAZEPAM 0.5 MG TAB PO ×2 (08:37→21:39)
[2018-04-12] MEDS: METOPROLOL 25 MG TAB PO ×2 (08:37→21:00)
[2018-04-12] MEDS: BALSAM PERU/CASTOR OIL 60 GM TUBE TOP (08:39)
[2018-04-12 08:48] LABS: ANION GAP 20 (5-13); BLOOD UREA NITROGEN 45 mg/dl (7-20); CALCIUM 8.6 mg/dl (8.4-10.2); CARBON DIOXIDE 22 mmol/L (21-31); CHLORIDE 98 mmol/L (97-110); CREATININE 7.93 mg/dl (0.61-1.24); Estimated GFR 7 mL/min (>60); GLUCOSE 96 mg/dl (70-220); MAGNESIUM 2.2 mg/dl (1.7-2.5); PHOSPHORUS 4.7 mg/dl (2.5-4.9); POTASSIUM 3.7 mmol/L (3.5-5.1); SODIUM 140 mmol/L (135-144)
[2018-04-12] MEDS ORDERED: ALBUTEROL/IPRATROPIUM (NEB) 3 ML AMP HHN (09:00)
[2018-04-12 09:40] LABS: ANISOCYTOSIS 1+ (0-0); BAND NEUTROPHILS #M 3.1 10^3/ul (0.0-0.6); BAND NEUTROPHILS % (M) 12 % (0-4); BASOPHIL #M 0.5 10^3/ul (0.0-0.0); BASOPHILS % (M) 2 % (0-2); BURR CELLS 2+ (0-0); HYPOCHROMASIA 1+ (0-0); LYMPHOCYTES #M 0.5 10^3/ul (0.8-2.9); LYMPHOCYTES % (M) 2 % (15-51); MONOCYTE #M 0.7 10^3/ul (0.3-0.9); MONOCYTES % (M) 3 % (0-11); PLATELET ESTIMATE NORMAL; POIKILOCYTOSIS 3+ (0-0); POLYCHROMASIA 3+ (0-0); SEG NEUT #M 22.1 10^3/ul (1.6-7.5); SEGMENTED NEUTROPHILS (M) % 81 % (39-77); SMUDGE%M 2 % (0-0)
[2018-04-12] MEDS: metroNIDAZOLE 500 MG TAB PO ×2 (13:08→16:52)
[2018-04-13] MEDS: metroNIDAZOLE 500 MG TAB PO ×4 (00:35→17:53)
[2018-04-13] MEDS: SOD CHLORIDE 0.9% 500 ML IV (00:37)
[2018-04-13] MEDS: ALBUMIN HUMAN 25% 100 ML IV ×3 (04:00→15:48)
[2018-04-13] MEDS ORDERED: LIDOCAINE 100 MG SYRINGE ×2 (05:25→06:36)
[2018-04-13 05:42] LABS: ADD MAN DIFF? NO
[2018-04-13] MEDS: NIFEdipine 10 MG CAP PO (06:00)
[2018-04-13 06:02] LABS: ABNORMAL IP MESSAGE 1; BASOPHIL # 0.1 10^3/ul (0.0-0.1); BASOPHILS % 0.3 % (0.0-2.0); EOSINOPHILS # 0.2 10^3/ul (0.0-0.5); EOSINOPHILS % 0.8 % (0.0-7.0); HEMATOCRIT 36.3 % (42.0-52.0); HEMOGLOBIN 10.8 g/dl (14.0-18.0); LYMPHOCYTES # 3.2 10^3/ul (0.8-2.9); LYMPHOCYTES % 14.7 % (15.0-51.0); MEAN CORPUSCULAR HEMOGLOBIN 26.3 pg (29.0-33.0); MEAN CORPUSCULAR HGB CONC 29.8 g/dl (32.0-37.0); MEAN CORPUSCULAR VOLUME 88.5 fl (82.0-101.0); MEAN PLATELET VOLUME 9.3 fl (7.4-10.4); MONOCYTE # 1.8 10^3/ul (0.3-0.9); MONOCYTES % 8.3 % (0.0-11.0); NEUTROPHIL # 15.9 10^3/ul (1.6-7.5); NEUTROPHILS % 74.5 % (39.0-77.0); PLATELET COUNT 357 10^3/UL (140-415); POSITIVE DIFF @See below; RED CELL DISTRIBUTION WIDTH 18.5 % (11.5-14.5)
[2018-04-13 06:02] LABS: WHITE BLOOD COUNT 21.4 10^3/ul (4.8-10.8)
[2018-04-13 06:09] LABS: ALANINE AMINOTRANSFERASE 17 IU/L (13-69); ALBUMIN 2.4 g/dl (3.3-4.9); ALBUMIN/GLOBULIN RATIO 0.68; ALKALINE PHOSPHATASE 99 IU/L (42-121); ANION GAP 21 (5-13); ASPARTATE AMINO TRANSFERASE 20 IU/L (15-46); BLOOD UREA NITROGEN 52 mg/dl (7-20); CALCIUM 8.7 mg/dl (8.4-10.2); CARBON DIOXIDE 17 mmol/L (21-31); CHLORIDE 103 mmol/L (97-110); CREATININE 8.75 mg/dl (0.61-1.24); Estimated GFR 6 mL/min (>60); GLUCOSE 90 mg/dl (70-220); POTASSIUM 4.6 mmol/L (3.5-5.1); SODIUM 141 mmol/L (135-144); TOTAL PROTEIN 5.9 g/dl (6.1-8.1)
[2018-04-13 06:09] LABS: LACTIC ACID 5.1 mmol/L (0.5-2.0)
[2018-04-13] MEDS: PANTOPRAZOLE (EC) 40 MG TAB PO ×2 (06:28→18:08)
[2018-04-13] MEDS: PIPER-TAZO 2.25 GM (PMX) 50 ML IVPB ×3 (07:00→21:02)
[2018-04-13] MEDS ORDERED: VANCOMYCIN IV PER PHARMACY XX (07:00)
[2018-04-13] MEDS: BALSAM PERU/CASTOR OIL 60 GM TUBE TOP (09:00)
[2018-04-13 09:18] LABS: ANISOCYTOSIS 1+ (0-0); BAND NEUTROPHILS #M 4.9 10^3/ul (0.0-0.6); BAND NEUTROPHILS % (M) 23 % (0-4); BASOPHIL #M 0.2 10^3/ul (0.0-0.0); BASOPHILS % (M) 1 % (0-2); BURR CELLS 3+ (0-0); GIANT THROMBO% (M) 1 % (0-0); LYMPHOCYTES #M 2.7 10^3/ul (0.8-2.9); LYMPHOCYTES % (M) 13 % (15-51); METAMYELOCYTES #M 0.2 10^3/ul (0.0-0.0); METAMYELOCYTES %M 1 % (0-0); MONOCYTE #M 1.4 10^3/ul (0.3-0.9); MONOCYTES % (M) 7 % (0-11); MYELOCYTES #M 0.4 10^3/ul (0.0-0.0); MYELOCYTES % (M) 2 % (0-0); PLATELET ESTIMATE NORMAL; POIKILOCYTOSIS 3+ (0-0); POLYCHROMASIA 3+ (0-0); REACTIVE LYMPHOCYTES #M 0.2 10^3/ul (0.0-0.0); REACTIVE LYMPHOCYTES% (M) 1 % (0-0); SEG NEUT #M 12.2 10^3/ul (1.6-7.5); SEGMENTED NEUTROPHILS (M) % 52 % (39-77); SMUDGE%M 6 % (0-0)
[2018-04-13] MEDS ORDERED: LIDOCAINE /PF 2% 10 ML AMPUL IJ (10:00)
[2018-04-13] MEDS: LIDOCAINE 2% (SDV) 5 ML INJ INJ (10:19)
[2018-04-13] MEDS: VANCOMYCIN 1.5 GM in SOD CHLORIDE 0.9% 250 ML IVPB (10:28)
[2018-04-13] MEDS: RIFAXIMIN 550 MG TAB PO ×2 (10:48→20:51)
[2018-04-13] MEDS: OLANZAPINE (ODT) 5 MG TAB ODT ×2 (10:48→20:51)
[2018-04-13] MEDS: SUCRALFATE (100 MG/ML) 10ML CUP NGT ×4 (10:48→20:51)
[2018-04-13] MEDS: SOD CHLORIDE 0.9% 1,000 ML IV (11:56)
[2018-04-13] MEDS: LIDOCAINE 1% (MPF) 5 ML VIAL SC (12:00)
[2018-04-13] MEDS: SOD CHLORIDE 0.9% 100 ML (12:35)
[2018-04-13 13:54] LABS: CREATINE KINASE < 20 IU/L (23-200)
[2018-04-13 14:04] LABS: CK-MB 1.76 ng/ml (0.0-2.4); TROPONIN-I 0.039 ng/ml (0.000-0.120)
[2018-04-13] MEDS: NORepinephrine 8MG/250 ML (PMX 250 ML IV (18:13)
[2018-04-13 20:38] LABS: CREATINE KINASE < 20 IU/L (23-200)
[2018-04-13 20:49] LABS: CK-MB 2.16 ng/ml (0.0-2.4); TROPONIN-I 0.043 ng/ml (0.000-0.120)
[2018-04-14] MEDS: metroNIDAZOLE 500 MG TAB PO ×4 (01:03→17:00)
[2018-04-14 05:19] LABS: ADD MAN DIFF? NO
[2018-04-14] MEDS: PIPER-TAZO 2.25 GM (PMX) 50 ML IVPB ×2 (05:20→13:38)
[2018-04-14] MEDS: PANTOPRAZOLE (EC) 40 MG TAB PO ×2 (05:20→17:00)
[2018-04-14 05:41] LABS: LACTIC ACID 1.1 mmol/L (0.5-2.0)
[2018-04-14 05:49] LABS: ANION GAP 14 (5-13); BLOOD UREA NITROGEN 25 mg/dl (7-20); CALCIUM 7.9 mg/dl (8.4-10.2); CARBON DIOXIDE 29 mmol/L (21-31); CHLORIDE 98 mmol/L (97-110); CREATININE 4.54 mg/dl (0.61-1.24); Estimated GFR 13 mL/min (>60); GLUCOSE 81 mg/dl (70-220); PHOSPHORUS 2.9 mg/dl (2.5-4.9); SODIUM 141 mmol/L (135-144)
[2018-04-14 05:55] LABS: POTASSIUM 2.9 mmol/L (3.5-5.1)
[2018-04-14] MEDS: POTASSIUM CHLORIDE 100 ML IVPB ×3 (06:31→10:29)
[2018-04-14 07:47] LABS: WHITE BLOOD COUNT 20.6 10^3/ul (4.8-10.8)
[2018-04-14 07:47] LABS: BASOPHIL # 0.2 10^3/ul (0.0-0.1); BASOPHILS % 0.7 % (0.0-2.0); EOSINOPHILS # 0.1 10^3/ul (0.0-0.5); EOSINOPHILS % 0.5 % (0.0-7.0); HEMATOCRIT 33.6 % (42.0-52.0); HEMOGLOBIN 10.1 g/dl (14.0-18.0); LYMPHOCYTES % 4.8 % (15.0-51.0); MEAN CORPUSCULAR HGB CONC 30.1 g/dl (32.0-37.0); MEAN CORPUSCULAR VOLUME 86.4 fl (82.0-101.0); MEAN PLATELET VOLUME 9.4 fl (7.4-10.4); MONOCYTE # 0.9 10^3/ul (0.3-0.9); MONOCYTES % 4.2 % (0.0-11.0); NEUTROPHIL # 17.6 10^3/ul (1.6-7.5); NEUTROPHILS % 85.6 % (39.0-77.0); PLATELET COUNT 351 10^3/UL (140-415); POSITIVE DIFF @See below; RED BLOOD COUNT 3.89 10^6/ul (4.70-6.10); RED CELL DISTRIBUTION WIDTH 18.4 % (11.5-14.5)
[2018-04-14] MEDS: SUCRALFATE (100 MG/ML) 10ML CUP NGT ×5 (08:31→21:00)
[2018-04-14] MEDS: RIFAXIMIN 550 MG TAB PO ×3 (08:32→21:00)
[2018-04-14] MEDS: OLANZAPINE (ODT) 5 MG TAB ODT ×2 (08:32→21:00)
[2018-04-14] MEDS: BALSAM PERU/CASTOR OIL 60 GM TUBE TOP (08:32)
[2018-04-14] MEDS: NORepinephrine 8MG/250 ML (PMX 250 ML IV (08:35)
[2018-04-14 10:10] LABS: ANISOCYTOSIS 1+ (0-0); BAND NEUTROPHILS #M 3.5 10^3/ul (0.0-0.6); BAND NEUTROPHILS % (M) 17 % (0-4); BASOPHIL #M 0.4 10^3/ul (0.0-0.0); BASOPHILS % (M) 2 % (0-2); BURR CELLS 3+ (0-0); GIANT THROMBO% (M) 1 % (0-0); HYPOCHROMASIA 2+ (0-0); LYMPHOCYTES #M 1.6 10^3/ul (0.8-2.9); LYMPHOCYTES % (M) 8 % (15-51); METAMYELOCYTES #M 0.2 10^3/ul (0.0-0.0); METAMYELOCYTES %M 1 % (0-0); MONOCYTE #M 1.6 10^3/ul (0.3-0.9); MONOCYTES % (M) 8 % (0-11); MYELOCYTES #M 0.4 10^3/ul (0.0-0.0); MYELOCYTES % (M) 2 % (0-0); PLATELET ESTIMATE NORMAL; POIKILOCYTOSIS 2+ (0-0); POLYCHROMASIA 2+ (0-0); PROMYELOCYTES #M 0.2 10^3/ul (0-0); PROMYELOCYTES % (M) 1 % (0-0); SEG NEUT #M 13.3 10^3/ul (1.6-7.5); SEGMENTED NEUTROPHILS (M) % 61 % (39-77); SMUDGE%M 2 % (0-0)
[2018-04-14] MEDS: ALTEPLASE (CATHFLO) 2 MG INJ CATHETER ×2 (15:50→18:52)
[2018-04-14] MEDS: OLANZAPINE 5 MG TAB PO (23:45)
[2018-04-15 01:24] LABS: AADO2 Arterial 5.8 mmHg (7.0-24.0); Allen Test ACCEPTAB; Arterial Blood Gas Oxygen Sat 99.3 mmHG (95.0-98.0); Arterial COHb 0.2 % (0.0-3.0); Arterial Fraction of Oxyhgb 98.7 % (93.0-99.0); Arterial HCO3 19.8 mmol/L (22.0-26.0); Arterial MetHb 0.4 % (0.0-1.5); Arterial pCO2 28.7 mmhg (35-45); MODE NASAL CANNULA; Site LB
[2018-04-15 05:18] LABS: WHITE BLOOD COUNT 26.8 10^3/ul (4.8-10.8)
[2018-04-15 05:18] LABS: ABNORMAL IP MESSAGE 1; HEMATOCRIT 39.4 % (42.0-52.0); HEMOGLOBIN 11.6 g/dl (14.0-18.0); MEAN CORPUSCULAR HGB CONC 29.4 g/dl (32.0-37.0); MEAN CORPUSCULAR VOLUME 88.3 fl (82.0-101.0); MEAN PLATELET VOLUME 9.8 fl (7.4-10.4); PLATELET COUNT 345 10^3/UL (140-415); POSITIVE DIFF @See below; RED BLOOD COUNT 4.46 10^6/ul (4.70-6.10)
[2018-04-15 05:21] LABS: ADD MAN DIFF? YES
[2018-04-15 05:51] LABS: ANION GAP 20 (5-13); BLOOD UREA NITROGEN 33 mg/dl (7-20); CALCIUM 8.5 mg/dl (8.4-10.2); CARBON DIOXIDE 22 mmol/L (21-31); CHLORIDE 100 mmol/L (97-110); CREATININE 5.91 mg/dl (0.61-1.24); Estimated GFR 10 mL/min (>60); GLUCOSE 61 mg/dl (70-220); MAGNESIUM 2.2 mg/dl (1.7-2.5); PHOSPHORUS 4.1 mg/dl (2.5-4.9); POTASSIUM 3.7 mmol/L (3.5-5.1); SODIUM 142 mmol/L (135-144)
[2018-04-15] MEDS: PANTOPRAZOLE (EC) 40 MG TAB PO ×2 (06:17→17:38)
[2018-04-15] MEDS: metroNIDAZOLE 500 MG TAB PO ×4 (06:17→17:38)
[2018-04-15 07:56] LABS: ANISOCYTOSIS 1+ (0-0); EOSINOPHILS % (M) 1 % (0-7); METAMYELOCYTES #M 0.2 10^3/ul (0.0-0.0); METAMYELOCYTES %M 1 % (0-0); MYELOCYTES #M 0.2 10^3/ul (0.0-0.0); MYELOCYTES % (M) 1 % (0-0); PLATELET ESTIMATE NORMAL; PLATELET MORPHOLOGY COMMENT @See below; POIKILOCYTOSIS 2+ (0-0); POLYCHROMASIA 1+ (0-0); PROMYELOCYTES % (M) 4 % (0-0); RBC MORPHOLOGY COMMENT @See below; TOXIC GRANULATION 1+ (0-0); WBC MORPHOLOGY COMMENT @See below
[2018-04-15] MEDS: SUCRALFATE (100 MG/ML) 10ML CUP NGT ×4 (09:00→21:52)
[2018-04-15] MEDS: BALSAM PERU/CASTOR OIL 60 GM TUBE TOP (09:00)
[2018-04-15] MEDS: RIFAXIMIN 550 MG TAB PO ×2 (09:00→21:52)
[2018-04-15] MEDS: OLANZAPINE (ODT) 5 MG TAB ODT (09:00)
[2018-04-15] MEDS: MIDODRINE 5 MG TAB GTB ×3 (10:00→17:00)
[2018-04-15] MEDS: HEPARIN 1000 UNITS/ML 10 ML INJ CATHETER (10:20)
[2018-04-15] MEDS: ALBUMIN HUMAN 25% 100 ML IV (10:22)
[2018-04-15 10:41] LABS: GIANT THROMBO% (M) 2 % (0-0)
[2018-04-15] MEDS ORDERED: ACETAMINOPHEN 325 MG TAB (13:07)
[2018-04-15] MEDS: ACETAMINOPHEN 325 MG TAB PO (13:09)
[2018-04-15 14:19] LABS: BAND NEUTROPHILS #M 3.2 10^3/ul (0.0-0.6); BAND NEUTROPHILS % (M) 12 % (0-4); BURR CELLS 2+ (0-0); HYPOCHROMASIA 1+ (0-0); LYMPHOCYTES #M 1.3 10^3/ul (0.8-2.9); LYMPHOCYTES % (M) 5 % (15-51); MONOCYTES % (M) 4 % (0-11); SEG NEUT #M 20.2 10^3/ul (1.6-7.5); SEGMENTED NEUTROPHILS (M) % 72 % (39-77); SMUDGE%M 5 % (0-0)
[2018-04-15] MEDS ORDERED: PIPER-TAZO 3.375 GM IV (PMX) 100 ML (14:34)
[2018-04-15] MEDS: SOD CHLORIDE 0.9% 1,000 ML IV ×2 (14:45→15:09)
[2018-04-15] MEDS: PIPER-TAZO 3.375 GM IV (PMX) 100 ML IVPB (14:48)
[2018-04-15] MEDS ORDERED: VANCOMYCIN IV PER PHARMACY XX (15:00)
[2018-04-15 15:05] LABS: WHITE BLOOD COUNT 28.7 10^3/ul (4.8-10.8)
[2018-04-15 15:05] LABS: ABNORMAL IP MESSAGE 1; HEMOGLOBIN 11.5 g/dl (14.0-18.0); MEAN CORPUSCULAR HEMOGLOBIN 26.3 pg (29.0-33.0); MEAN CORPUSCULAR HGB CONC 30.3 g/dl (32.0-37.0); MEAN CORPUSCULAR VOLUME 86.8 fl (82.0-101.0); MEAN PLATELET VOLUME 9.3 fl (7.4-10.4); PLATELET COUNT 293 10^3/UL (140-415); POSITIVE DIFF @See below; RED BLOOD COUNT 4.38 10^6/ul (4.70-6.10); RED CELL DISTRIBUTION WIDTH 18.6 % (11.5-14.5)
[2018-04-15] MEDS: SOD CHLORIDE 0.9% 100 ML ×2 (15:12→15:57)
[2018-04-15] MEDS: IODIXANOL LOCM 100 ML BTL ×2 (15:12→15:57)
[2018-04-15 15:16] LABS: ADD MAN DIFF? YES; INR 1.69; PT RATIO 1.6
[2018-04-15 15:21] LABS: PARTIAL THROMBOPLASTIN TIME 58.2 Sec (23.0-35.0)
[2018-04-15] MEDS ORDERED: VANCOMYCIN 1 GM 250 ML IVPB (15:30)
[2018-04-15 15:32] LABS: LACTIC ACID 2.8 mmol/L (0.5-2.0)
[2018-04-15] MEDS: VANCOMYCIN 1 GM 250 ML IVPB (17:35)
[2018-04-15] MEDS: VANCOMYCIN HCL 250 MG/5ML POSYG PO (17:39)
[2018-04-15] MEDS: MEROPENEM 500MG/50 ML (PMX) 50 ML IVPB (20:14)
[2018-04-16] MEDS: metroNIDAZOLE 500 MG TAB PO ×3 (01:56→12:00)
[2018-04-16] MEDS: VANCOMYCIN HCL 250 MG/5ML POSYG PO ×4 (01:58→18:00)
[2018-04-16] MEDS: PANTOPRAZOLE (EC) 40 MG TAB PO ×2 (06:06→17:59)
[2018-04-16 06:28] LABS: INR 1.71; PROTIME 20.2 Sec (11.9-14.9); PT RATIO 1.6
[2018-04-16 06:46] LABS: ABNORMAL IP MESSAGE 1; HEMATOCRIT 36.8 % (42.0-52.0); HEMOGLOBIN 10.9 g/dl (14.0-18.0); MEAN CORPUSCULAR HEMOGLOBIN 26.2 pg (29.0-33.0); MEAN CORPUSCULAR HGB CONC 29.6 g/dl (32.0-37.0); MEAN CORPUSCULAR VOLUME 88.5 fl (82.0-101.0); MEAN PLATELET VOLUME 9.8 fl (7.4-10.4); PLATELET COUNT 294 10^3/UL (140-415); POSITIVE DIFF @See below; RED BLOOD COUNT 4.16 10^6/ul (4.70-6.10)
[2018-04-16 06:46] LABS: WHITE BLOOD COUNT 29.1 10^3/ul (4.8-10.8)
[2018-04-16 06:53] LABS: ANION GAP 16 (5-13); BLOOD UREA NITROGEN 35 mg/dl (7-20); CALCIUM 8.1 mg/dl (8.4-10.2); CARBON DIOXIDE 24 mmol/L (21-31); CHLORIDE 104 mmol/L (97-110); CREATININE 5.84 mg/dl (0.61-1.24); Estimated GFR 10 mL/min (>60); GLUCOSE 75 mg/dl (70-220); MAGNESIUM 2.1 mg/dl (1.7-2.5); POTASSIUM 3.6 mmol/L (3.5-5.1); SODIUM 144 mmol/L (135-144)
[2018-04-16 06:56] LABS: ADD MAN DIFF? YES
[2018-04-16] MEDS: SUCRALFATE (100 MG/ML) 10ML CUP NGT ×4 (08:49→21:35)
[2018-04-16] MEDS: DIPHENHYDRAMINE 50 MG INJ IV (08:49)
[2018-04-16] MEDS: MIDODRINE 5 MG TAB GTB ×3 (08:50→17:00)
[2018-04-16] MEDS: RIFAXIMIN 550 MG TAB PO ×2 (08:50→21:34)
[2018-04-16] MEDS: BALSAM PERU/CASTOR OIL 60 GM TUBE TOP (08:51)
[2018-04-16 08:59] LABS: ANISOCYTOSIS 1+ (0-0); BAND NEUTROPHILS #M 3.4 10^3/ul (0.0-0.6); BAND NEUTROPHILS % (M) 12 % (0-4); BURR CELLS 3+ (0-0); LYMPHOCYTES #M 0.8 10^3/ul (0.8-2.9); LYMPHOCYTES % (M) 3 % (15-51); MONOCYTE #M 0.8 10^3/ul (0.3-0.9); MONOCYTES % (M) 3 % (0-11); MYELOCYTES #M 0.5 10^3/ul (0.0-0.0); MYELOCYTES % (M) 2 % (0-0); OVALOCYTES 1+ (0-0); PLATELET ESTIMATE NORMAL; POIKILOCYTOSIS 3+ (0-0); POLYCHROMASIA 1+ (0-0); SEG NEUT #M 24.3 10^3/ul (1.6-7.5); SEGMENTED NEUTROPHILS (M) % 80 % (39-77); SMUDGE%M 4 % (0-0)
[2018-04-16] MEDS: morphine SULFATE/PF (2 MG/2 ML) SYG IV (14:30)
[2018-04-16] MEDS: METOPROLOL (XL) 25 MG TAB PO (14:30)
[2018-04-16] MEDS ORDERED: AMIKACIN IV PER PHARMACY XX (15:00)
[2018-04-16] MEDS: ALTEPLASE (CATHFLO) 2 MG INJ CATHETER ×2 (15:38)
[2018-04-16] MEDS: AMIKACIN 450 MG in SOD CHLORIDE 0.9% 100 ML IVPB (16:48)
[2018-04-16] MEDS ORDERED: metroNIDAZOLE 500 MG TAB (20:34)
[2018-04-16] MEDS: metroNIDAZOLE 500 MG/NS (PMX) 100 ML IVPB (21:39)
[2018-04-17] MEDS: VANCOMYCIN HCL 250 MG/5ML POSYG PO ×4 (01:27→17:51)
[2018-04-17] MEDS: PANTOPRAZOLE (EC) 40 MG TAB PO ×2 (06:07→17:51)
[2018-04-17] MEDS: ACETAMINOPHEN 325 MG TAB PO (06:07)
[2018-04-17] MEDS: metroNIDAZOLE 500 MG/NS (PMX) 100 ML IVPB ×3 (06:08→21:23)
[2018-04-17 07:14] LABS: ABNORMAL IP MESSAGE 1; HEMATOCRIT 34.6 % (42.0-52.0); HEMOGLOBIN 10.3 g/dl (14.0-18.0); MEAN CORPUSCULAR HEMOGLOBIN 26.2 pg (29.0-33.0); MEAN CORPUSCULAR HGB CONC 29.8 g/dl (32.0-37.0); MEAN PLATELET VOLUME 9.9 fl (7.4-10.4); NUCLEATED RED BLOOD CELLS% 0.1 /100WBC (0.0-0.0); PLATELET COUNT 246 10^3/UL (140-415); POSITIVE DIFF @See below; RED BLOOD COUNT 3.93 10^6/ul (4.70-6.10); RED CELL DISTRIBUTION WIDTH 19.7 % (11.5-14.5)
[2018-04-17 07:22] LABS: ADD MAN DIFF? YES
[2018-04-17 07:39] LABS: ANION GAP 19 (5-13); BLOOD UREA NITROGEN 42 mg/dl (7-20); CALCIUM 8.6 mg/dl (8.4-10.2); CARBON DIOXIDE 20 mmol/L (21-31); CHLORIDE 104 mmol/L (97-110); CREATININE 6.55 mg/dl (0.61-1.24); Estimated GFR 8 mL/min (>60); GLUCOSE 74 mg/dl (70-220); MAGNESIUM 2.2 mg/dl (1.7-2.5); PHOSPHORUS 4.6 mg/dl (2.5-4.9); POTASSIUM 3.5 mmol/L (3.5-5.1); SODIUM 143 mmol/L (135-144)
[2018-04-17 07:48] LABS: VANCOMYCIN,TROUGH 21.7 ug/ml (10.0-20.0)
[2018-04-17] MEDS: SUCRALFATE (100 MG/ML) 10ML CUP NGT ×4 (08:16→21:23)
[2018-04-17] MEDS: RIFAXIMIN 550 MG TAB PO ×2 (08:16→21:24)
[2018-04-17] MEDS: METOPROLOL (XL) 25 MG TAB PO (08:17)
[2018-04-17 09:40] LABS: ANISOCYTOSIS 2+ (0-0); BAND NEUTROPHILS #M 0.6 10^3/ul (0.0-0.6); BAND NEUTROPHILS % (M) 3 % (0-4); BURR CELLS 2+ (0-0); LYMPHOCYTES #M 2.2 10^3/ul (0.8-2.9); LYMPHOCYTES % (M) 10 % (15-51); METAMYELOCYTES #M 0.6 10^3/ul (0.0-0.0); METAMYELOCYTES %M 3 % (0-0); MONOCYTE #M 0.8 10^3/ul (0.3-0.9); MONOCYTES % (M) 4 % (0-11); MYELOCYTES #M 0.2 10^3/ul (0.0-0.0); MYELOCYTES % (M) 1 % (0-0); OVALOCYTES 1+ (0-0); PLATELET ESTIMATE NORMAL; POIKILOCYTOSIS 2+ (0-0); POLYCHROMASIA 2+ (0-0); SEG NEUT #M 17.5 10^3/ul (1.6-7.5); SEGMENTED NEUTROPHILS (M) % 79 % (39-77); SMUDGE%M 11 % (0-0)
[2018-04-17] MEDS: ALBUMIN HUMAN 25% 100 ML IV (11:46)
[2018-04-17] MEDS: MIDODRINE HCL 10 MG TABLET PO ×3 (12:17→17:08)
[2018-04-17] MEDS: BALSAM PERU/CASTOR OIL 60 GM TUBE TOP (12:18)
[2018-04-17] MEDS: HEPARIN 1000 UNITS/ML 10 ML INJ CATHETER (14:00)
[2018-04-17] MEDS: AMIKACIN 300 MG in SOD CHLORIDE 0.9% 100 ML IVPB (16:29)
[2018-04-17] MEDS: HYOSCYAMINE 0.125 MG SUBL TAB SL (21:24)
[2018-04-18] MEDS: VANCOMYCIN HCL 250 MG/5ML POSYG PO ×5 (00:14→23:35)
[2018-04-18] MEDS: ZOLPIDEM 5 MG TAB PO (00:25)
[2018-04-18] MEDS: metroNIDAZOLE 500 MG/NS (PMX) 100 ML IVPB ×3 (06:18→22:12)
[2018-04-18] MEDS: PANTOPRAZOLE (EC) 40 MG TAB PO ×2 (06:18→17:52)
[2018-04-18] MEDS: SUCRALFATE (100 MG/ML) 10ML CUP NGT ×4 (08:47→22:12)
[2018-04-18] MEDS: HYOSCYAMINE 0.125 MG SUBL TAB SL ×3 (08:48→22:12)
[2018-04-18] MEDS: RIFAXIMIN 550 MG TAB PO ×2 (08:48→22:12)
[2018-04-18] MEDS: MIDODRINE HCL 10 MG TABLET PO ×3 (08:48→17:52)
[2018-04-18] MEDS: BALSAM PERU/CASTOR OIL 60 GM TUBE TOP (08:48)
[2018-04-18] MEDS: METOPROLOL (XL) 25 MG TAB PO (08:49)
[2018-04-19] MEDS: metroNIDAZOLE 500 MG/NS (PMX) 100 ML IVPB ×3 (06:18→22:00)
[2018-04-19] MEDS: PANTOPRAZOLE (EC) 40 MG TAB PO ×2 (06:19→17:29)
[2018-04-19] MEDS: VANCOMYCIN HCL 250 MG/5ML POSYG PO ×3 (06:19→17:29)
[2018-04-19 06:34] LABS: ABNORMAL IP MESSAGE 1; HEMATOCRIT 34.9 % (42.0-52.0); HEMOGLOBIN 10.7 g/dl (14.0-18.0); MEAN CORPUSCULAR HEMOGLOBIN 26.2 pg (29.0-33.0); MEAN CORPUSCULAR HGB CONC 30.7 g/dl (32.0-37.0); MEAN CORPUSCULAR VOLUME 85.5 fl (82.0-101.0); MEAN PLATELET VOLUME 9.3 fl (7.4-10.4); PLATELET COUNT 165 10^3/UL (140-415); POSITIVE DIFF @See below; RED BLOOD COUNT 4.08 10^6/ul (4.70-6.10)
[2018-04-19 06:34] LABS: WHITE BLOOD COUNT 14.4 10^3/ul (4.8-10.8)
[2018-04-19 06:37] LABS: ADD MAN DIFF? YES
[2018-04-19 06:54] LABS: ANION GAP 11 (5-13); BLOOD UREA NITROGEN 32 mg/dl (7-20); CARBON DIOXIDE 22 mmol/L (21-31); CHLORIDE 106 mmol/L (97-110); CREATININE 5.04 mg/dl (0.61-1.24); Estimated GFR 11 mL/min (>60); GLUCOSE 95 mg/dl (70-220); POTASSIUM 3.6 mmol/L (3.5-5.1); SODIUM 139 mmol/L (135-144)
[2018-04-19] MEDS: MIDODRINE HCL 10 MG TABLET PO ×3 (08:35→17:00)
[2018-04-19] MEDS: METOPROLOL (XL) 25 MG TAB PO (08:35)
[2018-04-19] MEDS: SUCRALFATE (100 MG/ML) 10ML CUP NGT ×4 (08:41→21:00)
[2018-04-19] MEDS: HYOSCYAMINE 0.125 MG SUBL TAB SL ×3 (08:41→22:14)
[2018-04-19] MEDS: RIFAXIMIN 550 MG TAB PO ×2 (08:41→21:00)
[2018-04-19] MEDS: BALSAM PERU/CASTOR OIL 60 GM TUBE TOP (09:00)
[2018-04-19 09:09] LABS: ANISOCYTOSIS 1+ (0-0); BAND NEUTROPHILS % (M) 7 % (0-4); BASOPHIL #M 0.1 10^3/ul (0.0-0.0); BASOPHILS % (M) 1 % (0-2); BURR CELLS 2+ (0-0); EOSINOPHILS % (M) 1 % (0-7); LYMPHOCYTES #M 0.8 10^3/ul (0.8-2.9); LYMPHOCYTES % (M) 6 % (15-51); METAMYELOCYTES #M 0.1 10^3/ul (0.0-0.0); METAMYELOCYTES %M 1 % (0-0); MONOCYTE #M 0.2 10^3/ul (0.3-0.9); MONOCYTES % (M) 2 % (0-11); MYELOCYTES #M 0.1 10^3/ul (0.0-0.0); MYELOCYTES % (M) 1 % (0-0); OVALOCYTES 1+ (0-0); PLATELET ESTIMATE NORMAL; POIKILOCYTOSIS 3+ (0-0); SEG NEUT #M 11.8 10^3/ul (1.6-7.5); SEGMENTED NEUTROPHILS (M) % 81 % (39-77); SMUDGE%M 6 % (0-0)
[2018-04-19] MEDS: ALBUMIN HUMAN 25% 100 ML IV (12:24)
[2018-04-19] MEDS: ALTEPLASE (CATHFLO) 2 MG INJ CATHETER (13:55)
[2018-04-19] MEDS ORDERED: VANCOMYCIN 1 GM 250 ML IVPB (17:00)
[2018-04-19] MEDS: AMIKACIN 300 MG in SOD CHLORIDE 0.9% 100 ML IVPB ×2 (18:38→19:32)
[2018-04-20] MEDS: VANCOMYCIN HCL 250 MG/5ML POSYG PO ×4 (05:41→18:31)
[2018-04-20] MEDS: PANTOPRAZOLE (EC) 40 MG TAB PO ×2 (05:41→18:35)
[2018-04-20] MEDS: metroNIDAZOLE 500 MG/NS (PMX) 100 ML IVPB ×2 (05:42→14:00)
[2018-04-20] MEDS: METOPROLOL (XL) 25 MG TAB PO (09:37)
[2018-04-20] MEDS: MIDODRINE HCL 10 MG TABLET PO ×3 (09:37→17:00)
[2018-04-20] MEDS: SUCRALFATE (100 MG/ML) 10ML CUP NGT ×3 (09:37→17:00)
[2018-04-20] MEDS: HYOSCYAMINE 0.125 MG SUBL TAB SL ×2 (09:37→13:06)
[2018-04-20] MEDS: BALSAM PERU/CASTOR OIL 60 GM TUBE TOP (13:06)
[2018-04-20] MEDS: RIFAXIMIN 550 MG TAB PO (13:07)
== END 2018-04-20 18:40 | DRG 871 ==
LOC: TEL 03-26 00:03 → ICU 04-13 04:22 → TEL 04-16 19:58 → 5EC 04-08 17:03 → PP2 04-14 21:14 → ICU 03-26 11:22 → 2NE 04-19 20:13 → TEL 03-27 20:06 → PP2 04-02 19:16
PROC: 5A1D70Z Performance of Urinary Filtration, Intermittent, Less than 6 Hours Per Day (ICD-10-PCS; principal; 2018-03-27)
PROC: 02HV33Z Insertion of Infusion Device into Superior Vena Cava, Percutaneous Approach (ICD-10-PCS; 2018-04-13)
PROC: 02H633Z Insertion of Infusion Device into Right Atrium, Percutaneous Approach (ICD-10-PCS; 2018-04-13)
DX: A41.9 Sepsis, unspecified organism (principal); J18.9 Pneumonia, unspecified organism; N18.6 End stage renal disease; G92 Toxic encephalopathy; J96.21 Acute and chronic respiratory failure with hypoxia; A04.72 Enterocolitis due to Clostridium difficile, not specified as recurrent; K92.2 Gastrointestinal hemorrhage, unspecified; R04.2 Hemoptysis; I12.0 Hypertensive chronic kidney disease with stage 5 chronic kidney disease or end stage renal disease; R57.9 Shock, unspecified; R65.20 Severe sepsis without septic shock; K70.30 Alcoholic cirrhosis of liver without ascites; Z99.2 Dependence on renal dialysis; I48.0 Paroxysmal atrial fibrillation; Z79.01 Long term (current) use of anticoagulants; D50.9 Iron deficiency anemia, unspecified; E83.9 Disorder of mineral metabolism, unspecified; K72.90 Hepatic failure, unspecified without coma; I95.9 Hypotension, unspecified; E87.6 Hypokalemia
CPT/HCPCS: 36569; 36600; 70450; 71045; 74018; 74177; 76937; 80048; 80053; 80061; 80202; 82140; 82270; 82550; 82553; 82728; 82803; 82962; 83036; 83540; 83605; 83735; 84100; 84132; 84443; 84484; 85025; 85610; 85730; 86704; 86709; 86803; 86850; 86900; 86901; 87040; 87075; 87081; 87340; 90935; 92526; 92610; 93005; 94640